=== PATIENT | female | born 1980 | race Caucasian/White ===

== ENCOUNTER 2017-03-15 18:12 | Emergency (ER) | payer MEDICAID ==
[~2017-03-15] VITALS: Ht 162.6 cm; Wt 68.5 kg
[~2017-03-15 18:12] MED LIST: PREN-19 PO
[2017-03-15 18:33] VITALS: Ht 162.6 cm; Wt 68.5 kg
[2017-03-15] MEDS ORDERED: HYDR-906 PO (19:02)
[2017-03-15] MEDS ORDERED: ACYC400T2 PO (19:02)
[2017-03-15] MEDS ORDERED: PRED20TA PO (19:02)
[2017-03-15] MEDS ORDERED: NAPR-688 PO (19:02)
--- NOTE | 2017-03-15 19:13 | ERD ---
ER Documentation Chief Complaint Date/Time DATE: 03/15/17 TIME: 19:04 Chief Complaint rashes on left lower breast extending to left back HPI 36-year-old female comes in with a rash in a bandlike distribution on her left side and left back. She has had it for a week and it is causing a burning sensation. She has no internal pain and believes it is all in her skin. ROS All systems reviewed and are negative except as per history of present illness. Medications Home Meds Active Scripts Hydrocodone/Acetaminophen ([place] 5-325 Tablet) 1 Each Tablet, 1 EACH PO Q6 for SEVERE PAIN LEVEL 7-10, #20 TAB Prov:KOBY CHAVEZ DO 03/15/17 Naproxen* (Naproxen*) 500 Mg Tablet, 500 MG PO BID Y for PAIN, #20 TAB Prov:KOBY CHAVEZ DO 03/15/17 Prednisone* (Prednisone*) 20 Mg Tab, 40 MG PO DAILY for 4 Days, TAB Prov:KOBY CHAVEZ DO 03/15/17 Acyclovir* (Acyclovir*) 400 Mg Tablet, 400 MG PO 5 TIMES DAILY for 7 Days, TAB Prov:KBOY CHAVEZ DO 03/15/17 Allergies Allergies: Coded Allergies: No Known Allergy (Unverified , 03/15/17) PMhx/Soc Medical and Surgical Hx: pt denies Medical Hx, pt denies Surgical Hx Hx Alcohol Use: No Hx Substance Use: No Hx Tobacco Use: No Smoking Status: Never smoker Physical Exam Vitals Vital Signs Date Time Temp Pulse Resp B/P Pulse Ox O2 Delivery O2 Flow Rate FiO2 03/15/17 18:33 99.3 72 20 114/64 98 Physical Exam Const: [] No distress Eyes: Normal Conjunctiva, no evidence of rash or eye discharge, EOMI, PERRL. ENT: Normal External Ears, Nose and Mouth. Abd: Soft, non tender, non distended. Normal bowel sounds Skin: Indurated erythematous lesions just lateral to the left breast, similar lesions on left back approximately the T3-T6 dermatomal levels. Does not cross the midline. Back: No midline or flank tenderness Procedures/MDM Herpes zoster rash with no ophthalmic involvement. Going to discharge with acyclovir, prednisone, naproxen and [place]. Primary care follow-up and return precautions as well. Departure Diagnosis: Primary Impression: Zoster Condition: Stable Patient Instructions: Shingles (Herpes Zoster) Referrals: [facility] YOU HAVE RECEIVED A MEDICAL SCREENING EXAM AND THE RESULTS INDICATE THAT YOU DO NOT HAVE A CONDITION THAT REQUIRES URGENT TREATMENT IN THE EMERGENCY DEPARTMENT. FURTHER EVALUATION AND TREATMENT OF YOUR CONDITION CAN WAIT UNTIL YOU ARE SEEN IN YOUR DOCTORS OFFICE WITHIN THE NEXT 1-2 DAYS. IT IS YOUR RESPONSIBILITY TO MAKE AN APPOINTMENT FOR FOLOW-UP CARE. IF YOU HAVE A PRIMARY DOCTOR --you should call your primary doctor and schedule an appointment IF YOU DO NOT HAVE A PRIMARY DOCTOR YOU CAN CALL OUR PHYSICIAN REFERRAL HOTLINE AT IF YOU CAN NOT AFFORD TO SEE A PHYSICIAN YOU CAN CHOSE FROM THE FOLLOWING [facility] [address] [facility] [address] [facility] [facility] [address] [facility] [address] [facility] [address] [facility]. [address] Additional Instructions: Llame al doctor MAANA y giovani meenakshi ERIBERTO PARA DENTRO DE 2-3 [address].Dgale a la secretaria que nosotros le instruimos hacer esta eriberto.Avise o llame si garrido condicin se empeora antes de la eriberto. Regresa aqui si peor o no mejor. KOBY CHAVEZ DO Mar 15, 2017 19:13
== END 2017-03-15 19:15 | disposition home or self-care (01) ==
LOC: EDUNIT# 18:12 → FTE 18:12
DX: B02.9 Zoster without complications (principal)
CPT/HCPCS: 99284